=== PATIENT | male | born 1990 | race Hispanic/Latino ===

== ENCOUNTER 2020-03-31 14:46 | Emergency (ER) | payer OTHER ==
[~2020-03-31] VITALS: Ht 180.3 cm; Wt 127.0 kg
== END 2020-03-31 16:27 | disposition home or self-care (01) ==
LOC: ED 14:46
DX: M25.561 Pain in right knee (principal); Z88.0 Allergy status to penicillin
CPT/HCPCS: 73560; 99283-25

== ENCOUNTER 2020-08-10 09:03 | Emergency (ER) | payer OTHER ==
[~2020-08-10] VITALS: Ht 180.3 cm; Wt 127.0 kg
== END 2020-08-10 09:45 | disposition home or self-care (01) ==
LOC: ED 09:03
DX: G89.29 Other chronic pain (principal); M79.661 Pain in right lower leg; Z88.0 Allergy status to penicillin
CPT/HCPCS: 99283

== ENCOUNTER 2021-02-09 06:26 | Emergency (ER) | payer OTHER ==
[~2021-02-09] VITALS: Ht 180.3 cm; Wt 148.0 kg
--- OUTSIDE RECORDS SUMMARY | 2021-02-09 06:34 | XMS ---
PreManage Notification: THIERNO COFFEY Security Admissions Evaluator Events No recent Security Events currently on file CRITERIA MET - [facility] - 2 Visits in 30 Days CARE PROVIDERS There are no care providers on record at this time. Baltazar has no Care Guidelines for this patient. [place] VISIT COUNT (12 MO.) 1 [facility] [place] [facility] T[facility] 4 NOTE: Visits indicate total known visits. ED/[facility] VISIT TRACKING (12 MO.) [facility]21 06[facility] COMPLAINT: - R HAND LACERATION 02/01/2021 17:54 [facility] [place] TYPE: Emergency DIAGNOSES: - foot numbness, leg pain - Hyperglycemia, unspecified - Type 2 diabetes mellitus with diabetic polyneuropathy - Foot Numbness 08/10/2020 09:04 [facility] Costa TYPE: Emergency COMPLAINT: - R LEG PAIN DIAGNOSES: - Pain in right lower leg - Other chronic pain - Allergy status to penicillin 03/31/2020 14:48 [facility] Teixeira [place] TYPE: Emergency COMPLAINT: - KNEE PAIN NON INJURY DIAGNOSES: - Pain in right knee - Allergy status to penicillin INPATIENT VISIT TRACKING (12 MO.) No inpatient visits to display in this time frame [email or web address]
[2021-02-09] MEDS ORDERED: METFORMIN HCL500 M1 PO (06:45)
[2021-02-09] MEDS ORDERED: LEVOTHYROXINE75 MCG PO (06:45)
== END 2021-02-09 07:09 | disposition home or self-care (01) ==
LOC: ED 06:26
DX: S61.411A Laceration without foreign body of right hand, initial encounter (principal); Z23 Encounter for immunization; W22.8XXA Striking against or struck by other objects, initial encounter
CPT/HCPCS: 73140; 90471; 90715; 99283-25

== ENCOUNTER 2021-02-11 12:34 | Emergency (ER) | payer OTHER ==
[~2021-02-11] VITALS: Ht 180.3 cm; Wt 147.9 kg
[~2021-02-11 12:34] MED LIST: LEVOTHYROXINE75 MCG PO; METFORMIN HCL500 M1 PO
--- OUTSIDE RECORDS SUMMARY | 2021-02-11 12:42 | XMS ---
PreManage Notification: THIERNO COFFEY Security Twitchell Operator Events No recent Security Events currently on file CRITERIA MET - [facility] - 2 Visits in 30 Days CARE PROVIDERS [facility] 02/10/2021-Current PHONE: [phone] Baltazar has no Care Guidelines for this patient. E.Roderick. VISIT COUNT (12 MO.) [address] [place] [address] TOTAL 5 NOTE: Visits indicate total known visits. ED/UCC VISIT TRACKING (12 MO.) 02/11/2021 12:35 TOOTIE Costa TYPE: Emergency COMPLAINT: - R HAND WOUND 02/09/2021 06:27 TO[facility]IE Costa TYPE: Emergency COMPLAINT: - R HAND LACERATION 02/01/2021 17:54 [facility] Roxi [place] TYPE: Emergency DIAGNOSES: - foot numbness, leg pain - Hyperglycemia, unspecified - Type 2 diabetes mellitus with diabetic polyneuropathy - Foot Numbness 08/10/2020 09:04 [facility] Te[facility]e[place] TYPE: Emergency COMPLAINT: - R LEG PAIN DIAGNOSES: - Pain in right lower leg - Other chronic pain - Allergy status to penicillin 03/31/2020 14:48 [facility] Te[facility]eira [place] TYPE: Emergency COMPLAINT: - KNEE PAIN NON INJURY DIAGNOSES: - Pain in right knee - Allergy status to penicillin INPATIENT VISIT TRACKING (12 MO.) No inpatient visits to display in this time frame [id number]
[2021-02-11] MEDS ORDERED: CLEOCIN HCL300 MG PO (14:33)
[2021-02-11] MEDS ORDERED: HYDROCODON-ACE1 EA10 PO (14:33)
== END 2021-02-11 15:05 | disposition home or self-care (01) ==
LOC: ED 12:34
DX: S61.411A Laceration without foreign body of right hand, initial encounter (principal); L03.113 Cellulitis of right upper limb; E11.65 Type 2 diabetes mellitus with hyperglycemia; W45.8XXA Other foreign body or object entering through skin, initial encounter; E03.9 Hypothyroidism, unspecified; Z88.0 Allergy status to penicillin; Z79.899 Other long term (current) drug therapy; Z79.84 Long term (current) use of oral hypoglycemic drugs
CPT/HCPCS: 73130; 80048; 85025; 96374; 99283-25

== ENCOUNTER 2021-07-28 14:59 | Emergency (ER) | payer OTHER ==
[~2021-07-28] VITALS: Ht 180.3 cm; Wt 146.3 kg
[~2021-07-28 14:59] MED LIST changes: +CLEOCIN HCL300 MG PO; +HYDROCODON-ACE1 EA10 PO
--- OUTSIDE RECORDS SUMMARY | 2021-07-28 15:10 | XMS ---
PreManage Notification: THIERNO COFFEY Security Complaint Adjuster Events 1 event(s) in the past 18 months Most recent security events: [facility]opement at [facility] 04/04/2021 15:58 - Other Details: PATIENT LWBS CRITERIA MET - 6 ED Visits in 6 Months CARE PROVIDERS TO[facility] 02/10/2021-Current PHONE: [phone] Baltazar has no Care Guidelines for this patient. [place] [facility] ([facility] MO.) [facility] [address] [place] [address] TOTAL 7 NOTE: Visits indicate total known visits. ED/UCC VISIT TRACKING (12 MO.) 07/28/2021 15:03 [facility]OTIE Teixeira [place] TYPE: Emergency COMPLAINT: - L SIDE CHEST INJURY 05/12/2021 18:41 [facility] [place] TYPE: Emergency DIAGNOSES: - Back Pain - Covid+ rt side back pain - Cough - COVID-19 - rt side back pain - Essential (primary) hypertension 04/04/2021 15:58 [facility] Te[place] TYPE: Emergency COMPLAINT: - HEADACHES DUE TO INJURY 02/11/2021 12:35 [facility] Te[facility]eira [place] TYPE: Emergency COMPLAINT: - R HAND WOUND DIAGNOSES: - Other specified soft tissue disorders - Laceration without foreign body of right hand, initial encounter - Hypothyroidism, unspecified - Other meterman (current) drug therapy - Type 2 diabetes mellitus with hyperglycemia - Allergy status to penicillin - group home (current) use of oral hypoglycemic drugs - Other foreign body or object entering through skin, initial encounter - Cellulitis of right upper limb 02/09/2021 06:[address] [facility] TYPE: Emergency COMPLAINT: - R HAND LACERATION DIAGNOSES: - Encounter for immunization - Striking against or struck by other objects, initial encounter - Laceration without foreign body of right hand, initial encounter 02/01/2021 17:54 [facility] [place] TYPE: Emergency DIAGNOSES: - foot numbness, leg pain - Hyperglycemia, unspecified - Type 2 diabetes mellitus with diabetic polyneuropathy - Foot Numbness 08/10/2020 09:04 [facility]IE Te[place]eira [place] TYPE: Emergency COMPLAINT: - R LEG PAIN DIAGNOSES: - Pain in right lower leg - Other chronic pain - Allergy status to penicillin INPATIENT VISIT TRACKING (12 MO.) No inpatient visits to display in this time frame [id number]
[2021-07-28] MEDS ORDERED: LOSARTAN POTASS25 MG PO (17:47)
[2021-07-28] MEDS ORDERED: GLIMEPIRIDE2 MG PO (17:47)
[2021-07-28] MEDS ORDERED: CYCLOBENZAPRINE10 MG PO (19:40)
== END 2021-07-28 19:54 | disposition home or self-care (01) ==
LOC: ED 14:59
DX: R07.89 Other chest pain (principal); E11.9 Type 2 diabetes mellitus without complications; E03.9 Hypothyroidism, unspecified; I10 Essential (primary) hypertension; Z88.0 Allergy status to penicillin; Z79.899 Other long term (current) drug therapy; Z79.84 Long term (current) use of oral hypoglycemic drugs; X50.0XXA Overexertion from strenuous movement or load, initial encounter; Y99.0 Civilian activity done for income or pay
CPT/HCPCS: 71046; 96372; 99284-25; J1885